=== PATIENT | female | born 1985 | race Caucasian/White ===

== ENCOUNTER 2017-11-24 20:46 | Emergency (ER) | payer SELFPAY ==
[~2017-11-24] VITALS: Ht 172.7 cm; Wt 84.0 kg
[2017-11-24 20:48] VITALS: BP 166/88; PULSE 103; RESP 16; TEMP 98.4; O2SAT 100
--- NOTE | 2017-11-24 22:09 | PD ---
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 It was placed at [facility]. She says it's been really bothering her over the past day, with a sharp pain, constant, moderate severity with no associated fevers or chills. She's been taking her antibiotics as prescribed. She really wants to get the catheter out. PFSH Past Medical History Medical History: Denies Significant Hx LMP: 11/23/17 Social History Tobacco Use: No Allergies-Medications (Allergen,Severity, Reaction): Coded Allergies: No Known Allergies (Unverified , 11/24/17) Reported Meds & Prescriptions Reported Meds & Active Scripts Active No Active Prescriptions or Reported Medications Review of Systems General / Constitutional: No: Fever, Chills Gastrointestinal: No: Abdominal Pain Physical Exam Narrative GENERAL: Well-appearing, no acute distress, nontoxic SKIN: Warm and dry. HEAD: Atraumatic. Normocephalic. ENT: No nasal bleeding or discharge. Moist mucous membranes RN RESEARCH: Chen catheter in the right 7 o'clock position along the labia majora MUSCULOSKELETAL: No obvious deformities. No clubbing. No cyanosis. No edema. NEUROLOGICAL: Awake and alert. No obvious cranial nerve deficits. Motor grossly within normal limits. Normal speech. PSYCHIATRIC: Appropriate mood and affect; insight and judgment normal. Data Data Last Documented VS Vital Signs Date Time Temp Pulse Resp B/P (MAP) Pulse Ox O2 Delivery O2 Flow Rate FiO2 11/24/17 20:48 98.4 103 16 166/88 (114) 100 Room Air MDM Medical Decision Making Medical Screen Exam Complete: Yes Emergency Medical Condition: Yes Interpretation(s) afebrile, tachycardic, hypertensive Differential Diagnosis bartholin's cyst, abscess, pid Narrative Course This is a 32-year-old female who presents to the emergency department requesting her Chen catheter removed. It's been in for 5 days. I told her usually recommended gestational bit longer but she really wants it out. I removed the catheter. She feels much better. 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 Diagnosis Primary Impression: Bartholin cyst Patient Instructions: General Instructions Additional Instructions: If you develop increasing swelling, pain or fever return to the emergency department. Med/Other Pt SpecificInfo: No Change to Meds Scripts No Active Prescriptions or Reported Meds Disposition: 01 DISCHARGE HOME Condition: Stable Brandie Salguero MD Nov 24, 2017 22:09
== END 2017-11-24 22:59 | disposition home or self-care (01) ==
LOC: NEPC 20:46
DX: N75.0 Cyst of Bartholin's gland (principal); Z51.89 Encounter for other specified aftercare
CPT/HCPCS: 99281

== ENCOUNTER 2018-01-24 22:53 | Emergency (ER) | payer SELFPAY ==
[~2018-01-24] VITALS: Ht 172.7 cm; Wt 90.0 kg
[2018-01-24] MEDS ORDERED: SULFAMETHOXAZOLE-TRIMETHOPRIM DS 800-160 MG TAB PO ONE (23:15)
[2018-01-24] MEDS ORDERED: BACT800T5 PO (23:15)
[2018-01-24 23:16] VITALS: BP 140/73; PULSE 98; RESP 16; TEMP 98.6; O2SAT 99
--- NOTE | 2018-01-24 23:16 | PD ---
HPI Chief Complaint: Skin Problem Time Seen by Provider: 23:01 Travel History International Travel<30 days: No Contact w/Intl Traveler<30days: No Traveled to known affect area: No History of Present Illness HPI Patient is a 32-year-old female presenting to the emergency department for evaluation of a possible Bartholin's cyst. Patient states she had one in October, she states it was very painful and had the catheter removed after 5 days. She states the symptoms this time are the same, she rates her pain a 7 out of 10 and reports it is tender. Symptom onset was gradual, duration is 1 day, severity is moderate, there are no alleviating factors. Pain is exacerbated with touch or movement. Patient denies any fevers, chills, vaginal discharge, abdominal pain, pelvic pain. PFSH Past Medical History Medical History: Denies Significant Hx ?: Not LMP: 01/01/18 Social History Alcohol Use: No Tobacco Use: No Substance Use: No Allergies-Medications (Allergen,Severity, Reaction): Coded Allergies: No Known Allergies (Unverified , 01/24/18) Reported Meds & Prescriptions Reported Meds & Active Scripts Active No Active Prescriptions or Reported Medications Review of Systems Except as stated in HPI: all other systems reviewed are Neg Skin: Positive Lumps Physical Exam Narrative GENERAL: Overweight, well-developed, alert female. Presenting in no acute distress. SKIN: Warm and dry. HEAD: Normocephalic. EYES: No scleral icterus. No injection or drainage. NECK: Supple, trachea midline. No JVD or lymphadenopathy. CARDIOVASCULAR: Regular rate and rhythm without murmurs, gallops, or rubs. RESPIRATORY: Breath sounds equal bilaterally. No accessory muscle use. GASTROINTESTINAL: Abdomen soft, non-tender, nondistended. GENITOURINARY: No dysuria, no frequency, vaginal discharge or bleeding. Right Bartholin's gland is edematous and mildly fluctuant. No erythema noted. MUSCULOSKELETAL: No cyanosis, or edema. BACK: Nontender without obvious deformity. No CVA tenderness. Data Data Orders Orders Sulfamet-Trimeth Ds 800-160 Mg (Bactrim (01/24/18 23:15) MDM Medical Decision Making Medical Screen Exam Complete: Yes Emergency Medical Condition: Yes Differential Diagnosis Bartholin's cyst versus Bartholin abscess versus folliculitis versus cellulitis versus other Narrative Course Patient is a 32-year-old female presenting for evaluation of swelling to her outer labia which started this morning. Physical examination is consistent with Bartholin's abscess. Patient is refusing incision and drainage at this time. She was strongly advised that this is the gold standard for treatment. She stated that it is too painful and wanted to only take antibiotics initially. Patient was advised that antibiotics will likely not resolve the situation and she will end up requiring incision and drainage. She states that she would like to try the antibiotics for 1-2 days and would come back if she did not have any r resolution. She is advised to follow-up at the [facility] for routine gynecological health care. Or with a roofing technician. She was encouraged to return to emergency department for any new or worsening symptoms as discussed previously. Patient stable for discharge. She was given first dose of Bactrim in the emergency department. Diagnosis Primary Impression: Abscess of Bartholin's gland Referrals: [facility] [place] [facility] Patient Instructions: Bartholin Cyst (ED), General Instructions Additional Instructions: Return to emergency department immediately for any new or worsening symptoms as discussed Follow-up at the [facility] or with a primary doctor or roofing technician Take medications as directed You may use a warm sitz bath or warm compresses to help with pain Med/Other Pt SpecificInfo: Prescription(s) given Scripts Sulfamethoxazole-Trimethoprim (Bactrim DS) 800-160 Mg Tab 1 TAB PO BID for Infection, #14 TAB 0 Refills Prov: Candie Isbell 01/24/18 Disposition: 01 DISCHARGE HOME Condition: Stable Candie Isbell Jan 24, 2018 23:16
== END 2018-01-24 23:36 | disposition home or self-care (01) ==
LOC: NEPD 22:53
DX: N75.1 Abscess of Bartholin's gland (principal)
CPT/HCPCS: 99283